=== PATIENT | male | born 1965 | race Caucasian/White ===

== ENCOUNTER 2017-12-14 18:12 | Emergency (ER) | payer BC ==
[2017-12-14 18:27] VITALS: BP 149/105
[2017-12-14] MEDS ORDERED: Lidocaine 2% W/EPI 1:100,000* 20 ML MDV INJ ONE (18:44)
--- NOTE | 2017-12-14 19:47 | UC ---
Laceration HPI - HPI Summary HPI Summary: 52 yo male presents with a left thigh laceration occurred minutes prior to arrival his Td up to date occurred with new weed razor - History Of Current Complaint Chief Complaint: UCLaceration Stated Complaint: LEG LAC Time Seen by Provider: 12/14/17 18:38 Hx Obtained From: Patient Mechanism Of Injury: Sharp Trauma Onset/Duration: Sudden Onset Severity: Mild Pain Intensity: 2 Pain Scale Used: 0-10 Numeric Aggravating Factors: Nothing Full Body (No Head): 1 - lac - Allergies/Home Medications Allergies/Adverse Reactions: Allergies Allergy/AdvReac Type Severity Reaction Status Date / Time No Known Allergies Allergy Verified 12/14/17 18:27 Home Medications: Home Medications Escitalopram (NF) [Lexapro 20 mg (NF)] 20 mg PO DAILY 12/14/17 [History Confirmed 12/14/17] Levothyroxine TAB* [Synthroid TAB*] 75 mcg PO DAILY 12/14/17 [History Confirmed 12/14/17] Losartan/Hydrochlorothiazide [Losartan-Hctz 50-12.5 mg Tab] 12/14/17 [History Confirmed 12/14/17] PMH/Surg Hx/FS Hx/Imm Hx Previously Healthy: Yes Endocrine History: Dyslipidemia Cardiovascular History: Hypertension - Surgical History Surgical History: None - Social History Alcohol Use: Occasionally Substance Use Type: None Smoking Status (MU): Never Smoked Tobacco - Immunization History Most Recent Tetanus Shot: ~2016 Review of Systems Constitutional: Negative Skin: Negative Eyes: Negative ENT: Negative Respiratory: Negative Cardiovascular: Negative Gastrointestinal: Negative Genitourinary: Negative Motor: Negative Neurovascular: Negative Musculoskeletal: Negative Neurological: Negative Psychological: Negative All Other Systems Reviewed And Are Negative: Yes Physical Exam Triage Information Reviewed: Yes Appearance: Well-Appearing, No Pain Distress, Well-Nourished Vital Signs: Initial Vital Signs Temp 98 F 12/14/17 18:23 Pulse 106 12/14/17 18:23 Resp 16 12/14/17 18:23 BP 149/105 12/14/17 18:23 Pulse Ox 99 12/14/17 18:23 Vital Signs Reviewed: Yes Eyes: Positive: Conjunctiva Clear ENT: Positive: Hearing grossly normal. Negative: Nasal drainage, Trismus, Muffled voice, Hoarse voice Respiratory: Positive: Lungs clear, Normal breath sounds, No respiratory distress, No accessory muscle use Cardiovascular: Positive: RRR, No Murmur Neurological: Positive: Alert Psychological Exam: Normal Skin Exam: Other - lac left thigh Skin: Negative: rashes Laceration Repair - Laceration Repair 1 Description: Linear Laceration Size After Repair: Length (cm) - 4.2, Width (mm) - 10, Depth (mm) - 10 Type Injection: Local Anesthesia Used: 2.0% Lido Additive Used (in ml): Epi Cleansing Completed Via Routine Prep: Yes Irrigation With Pressure Irrigation Device: Yes Closure Material: Sutures Closure Method: Multilayer Suture Of: Skin - 11 4-0 nylon, SQ - 3 4-0 vicryl Suture Type: Nylon, Vicryl Laceration Course/Dx - Differential Dx - Laceration/Wound Provider Diagnoses: laceration repair (layered) left lower thigh Discharge - Sign-Out/Discharge Documenting (check all that apply): Patient Departure All imaging exams completed and their final reports reviewed: No Studies - Discharge Plan Condition: Stable Disposition: HOME Patient Education Materials: Laceration (ED) Referrals: Yunior Vargas MD [Primary Care Provider] - 2 Weeks Additional Instructions: rest elevate gently clean twice daily with soap and water apply thin film of ointment(I like polysporin or aquaphor healing ointment) Recheck ben for any concerns of infection sutures out in about 2 weeks - Billing Disposition and Condition Condition: STABLE Disposition: Home
== END 2017-12-14 19:53 | disposition home or self-care (01) ==
LOC: UCEAST 18:12
DX: S71.112A Laceration without foreign body, left thigh, initial encounter (principal); W29.8XXA Contact with other powered hand tools and household machinery, initial encounter; Y92.9 Unspecified place or not applicable; E11.9 Type 2 diabetes mellitus without complications; I10 Essential (primary) hypertension
CPT/HCPCS: 13121; 99212; G0463